=== PATIENT | male | born 1995 | race Caucasian/White ===

== ENCOUNTER 2017-10-19 22:54 | Emergency (ER) | payer OTHER ==
[~2017-10-19] VITALS: Ht 182.9 cm; Wt 86.6 kg
[2017-10-19 23:09] VITALS: Ht 182.9 cm; Wt 86.6 kg
[2017-10-20 01:19] VITALS: BP 132/80
== END 2017-10-20 01:19 | disposition home or self-care (01) ==
LOC: ED 22:54
DX: K12.2 Cellulitis and abscess of mouth (principal)